=== PATIENT | female | born 1960 | race Caucasian/White ===

== ENCOUNTER → 2018-01-16 | Outpatient (CLI) | payer BC | END | disposition home or self-care (01) | LOC: CFH 07:36 | PROVIDERS: ATTEND Family Medicine | DX: I10 Essential (primary) hypertension (principal); R05 Cough | CPT/HCPCS: 71046; 93975 ==

== ENCOUNTER → 2018-05-01 | Outpatient (CLI) | payer BC ==
[~2018-05-01] MED LIST: ENAL10TA PO; MONT10TA9 PO; PROG100C16 PO
== END | disposition home or self-care (01) ==
LOC: CFH 12:16
PROVIDERS: ATTEND Internal Medicine
DX: R06.02 Shortness of breath (principal); Z87.01 Personal history of pneumonia (recurrent)
CPT/HCPCS: 71250

== ENCOUNTER → 2019-12-13 | Outpatient (CLI) | payer BC ==
[~2019-12-13] MED LIST changes: -ENAL10TA PO; +ENAL10TA9 PO; +MONT10TA11 PO; -MONT10TA9 PO; +OMNIPAQUE 350 MG/ML, 100ML BOTTLE ONE
== END | disposition home or self-care (01) ==
LOC: RAD 12:01
PROVIDERS: ATTEND Nurse Practitioner Family
DX: R10.11 Right upper quadrant pain (principal)
CPT/HCPCS: 74160; Q9967

== ENCOUNTER 2019-12-30 12:26 | Emergency (ER) | payer BC ==
[~2019-12-30] VITALS: Ht 175.3 cm; Wt 86.9 kg
[~2019-12-30 12:26] MED LIST changes: -OMNIPAQUE 350 MG/ML, 100ML BOTTLE ONE
[2019-12-30 12:36] VITALS: BP 178/98
== END 2019-12-30 13:28 | disposition home or self-care (01) ==
LOC: ED 13:16
DX: R10.11 Right upper quadrant pain (principal); R00.0 Tachycardia, unspecified; I51.7 Cardiomegaly
CPT/HCPCS: 93005; 99283